=== PATIENT | female | born 1980 | race Caucasian/White ===

== ENCOUNTER 2016-04-10 19:28 | Emergency (ER) | payer BC ==
[2016-04-10 19:46] VITALS: BP 116/65; PULSE 81; RESP 16; TEMP 97.9; O2SAT 100
--- NOTE | 2016-04-10 20:24 | UCPHY ---
H & P Time Seen by Provider: 04/10/16 19:54 Patient Type: New HPI/ROS: 35 yo F presents c/o left upper nose pain. She was sitting on the sofa and her 3 year old whipped his head back hitting her in the nose. No bleeding from nose, no loss of consciousness. Review of systems as per hpi General no fever no chills no weakness HEENT no eye pain no eye discharge. No eye redness, no sore throat Respiratory no cough, no shortness of breath Cardiac no chest pain, no peripheral edema GI no abdominal pain, no diarrhea, no constipation, no nausea, no vomiting no flank pain, no hematuria, no dysuria Musculoskeletal no myalgias, no joint pain Heme no easy bruising, no easy bleeding Endo no polyuria, no polydipsia Skin no rashes, no pruritus Neuro no syncope, no dizziness, no headaches Psych is no suicidal ideation, no homicidal ideation Past Medical/Surgical History: not contributory Social History: occasional alcohol, denies drug use Smoking Status: Former smoker Physical Exam: 35 yo F alert and oriented in nad, non toxic appearance in nad at,nc eomi, anicteric face mild tenderness to palpation left upper nares no septal hematoma no deformity neck supple Alert and oriented in no acute distress nontoxic appearance, afebrile Atraumatic normocephalic Lungs clear to auscultation, no respiratory distress Heart regular rate and rhythm Extremities no cyanosis clubbing edema Constitutional: Initial Vital Signs Temperature (C) 36.6 C 04/10/16 19:41 Heart Rate 81 04/10/16 19:41 Respiratory Rate 16 04/10/16 19:41 Blood Pressure 116/65 04/10/16 19:41 O2 Sat (%) 100 04/10/16 19:41 O2 Delivery Mode Room Air Allergies/Adverse Reactions: No Known Allergies Allergy (Verified 04/10/16 19:45) Home Medications: Medication Instructions Recorded NK [No Known Home Meds] 04/10/16 Medical Decision Making ED Course/Re-evaluation: pt seen and evaluated for nose injury physical exam neg for septal hematoma, no deformity, ttp left upper lateral nose imp nose contusion cannot rule out very small nasal fracture plan ice, ibuprofen/aceatminophen prn ENT follow up if you continue to have pain or issues. Departure - Departure Disposition: Home, Routine, Self-Care Clinical Impression: Contusion of nose, initial encounter Instructions: Nasal Fracture (ED) Referrals: Unknown,Unknown [Primary Care Provider] - As per Instructions Aquiles Donaldson MD [Medical Doctor] - As per Instructions - PQRS PQRS Measurement: na
== END 2016-04-10 20:29 | disposition home or self-care (01) ==
LOC: CED 19:28
DX: S00.33XA Contusion of nose, initial encounter (principal); W50.0XXA Accidental hit or strike by another person, initial encounter; Y92.019 Unspecified place in single-family (private) house as the place of occurrence of the external cause
CPT/HCPCS: G0463-PO